=== PATIENT | male | born 1975 | race Caucasian/White ===

== ENCOUNTER 2017-04-27 04:18 | Emergency (ER) | payer MEDICAID ==
[~2017-04-27] VITALS: Ht 177.8 cm; Wt 88.5 kg
[2017-04-27 04:30] VITALS: BP 125/80
== END 2017-04-27 06:09 | disposition left against medical advice (07) ==
LOC: ER 04:20
DX: J02.9 Acute pharyngitis, unspecified (principal); R05 Cough; Z53.21 Procedure and treatment not carried out due to patient leaving prior to being seen by health care provider